=== PATIENT | female | born 1950 | race Caucasian/White ===

== ENCOUNTER 2017-01-23 11:46 | Emergency (ER) | payer MEDICARE, OTHER ==
[~2017-01-23] VITALS: Ht 165.1 cm; Wt 77.1 kg
--- NOTE | 2017-01-23 12:10 | ED.ADGEN ---
Adult General Chief Complaint Chief Complaint left leg laceration HPI HPI Patient is a 66 year old male who presents with left staples laceration. Patient was at a [facility] service, getting out of a car when the car door came back and hit her in the staples. sHe believes that her tetanus was updated in July, she would like to wait she returns for [place] tomorrow and check with her doctor. He denies other injuries. Review of Systems Review of Systems Constitutional: Denies fever or chills [] Eyes: Denies change in visual acuity, redness, or eye pain [] HENT: Denies nasal congestion or sore throat [] Respiratory: Denies cough or shortness of breath [] Cardiovascular: Denies chest pain GI: Denies abdominal pain, nausea, vomiting, bloody stools or diarrhea [] : Denies dysuria or hematuria [] Musculoskeletal: Denies back pain or joint pain [] Integument: per hpi Neurologic: Denies headache, focal weakness or sensory changes [] Current Medications Current Medications Current Medications Medications (Trade) Dose Ordered Sig/Ras Start Time Stop Time Status Last Admin Dose Admin Bacitracin 1 ron 1X ONCE 01/23/17 12:45 01/23/17 12:46 UNV Lidocaine/ Epinephrine (Xylocaine 1%-Epi 1:100,000) 20 ml 1X ONCE 01/23/17 12:40 01/23/17 12:41 01/23/17 12:35 20 ML Allergies Allergies Allergies Coded Allergies Type Severity Reaction Last Updated Verified Sulfa (Sulfonamide Antibiotics) Allergy Severe Itching 01/23/17 Yes Physical Exam Physical Exam Constitutional: Well developed, well nourished, no acute distress, non-toxic appearance. [] HENT: Normocephalic, atraumatic, bilateral external ears normal, oropharynx moist, no oral exudates, nose normal. [] Eyes: PERRLA, EOMI, conjunctiva normal, no discharge. [] Neck: Normal range of motion, no tenderness, supple, no stridor. [] Cardiovascular:Heart rate regular with regular rhythm, no murmur [] Lungs & Thorax: Bilateral breath sounds clear to auscultation, no wheeze, crackles or rhonchi Abdomen: soft, no tenderness, no masses, no pulsatile masses. [] Skin: Warm, dry, left chin flap laceration mid chin, good hemostasis, 4 cm Neurologic: Alert and oriented X 3, normal motor function, normal sensory function, no focal deficits noted. [] Psychologic: Affect normal, judgement normal, mood normal. [] EKG EKG [] Radiology/Procedures Radiology/Procedures Indication: left staples lac Procedure: The patient was placed in the appropriate position and anesthesia around the 1% Lidocaine with epi . The area was then NS. The laceration was closed with 4-0 ethilon, 1 vertical mattress, 4 simple interrupted. The wound area was then dressed with bacitracin and bandage. Total repaired wound length: 4cm. Other Items: total of 5 sutures The patient tolerated the procedure well. Complications: COMPLICATIONS none Course & Med Decision Making Course & Med Decision Making Pertinent Labs and Imaging studies reviewed. (See chart for details) pt to check with her doctor tomorrow regarding tetanus. wound care instructions given, remove in 12 days. Final Impression Final Impression leg laceration[] Problems: Dragon Disclaimer Dragon Disclaimer This electronic medical record was generated, in whole or in part, using a voice recognition dictation system. NESTOR TANG MD Jan 23, 2017 12:10
[2017-01-23] MEDS ORDERED: LIDOCAINE 1%/EPI 1:100,000 20 ML VIAL. IJ ONE (12:40)
[2017-01-23 12:45] VITALS: BP 130/60
[2017-01-23] MEDS ORDERED: BACITRACIN TOPICAL OINT 28GM TUBE. TP ONE (12:45)
== END 2017-01-23 12:45 | disposition home or self-care (01) ==
LOC: ER 11:46
DX: S81.812A Laceration without foreign body, left lower leg, initial encounter (principal); Z88.2 Allergy status to sulfonamides; W22.8XXA Striking against or struck by other objects, initial encounter; Y93.89 Activity, other specified; Y99.8 Other external cause status; Y92.89 Other specified places as the place of occurrence of the external cause
CPT/HCPCS: 12002; 99283-25